=== PATIENT | female | born 1975 | race Hispanic/Latino ===

== ENCOUNTER 2019-11-25 01:08 | Emergency (ER) | payer SELFPAY ==
[~2019-11-25] VITALS: Ht 160 cm; Wt 68.0 kg
[2019-11-25] MEDS ORDERED: KETOROLAC TROMETHAMINE 30 MG/ML VIAL ONE (01:26)
[2019-11-25] MEDS ORDERED: KETOROLAC TROMETHAMINE 60 MG/2 ML VIAL IM ONE (01:30)
[2019-11-25] MEDS ORDERED: ULTRAM50 MG PO (01:37)
[2019-11-25] MEDS ORDERED: NAPROSYN500 MG PO (01:37)
[2019-11-25] MEDS ORDERED: LIDOCAINE 1% W/EPINEPHRINE 20 ML VIAL INJ ONE (01:45)
--- NOTE | 2019-11-25 01:58 | Diagnostic Imaging Report ---
LEFT WRIST 3 IMAGES - LEFT HAND 3 IMAGES HISTORY: Fall COMPARISON: None available. FINDINGS: Rings on the third and fourth digits could not be removed. Bones: Transverse fracture through the distal radius with impaction. No significant displacement of the largest fracture fragments. Intra-articular involvement is suspected. Distal ulna is intact. Carpal bones are intact and normally aligned. The digits are intact. No aggressive osseous lesion. Joints: Osseous alignment is within normal limits and the joint spaces are well-maintained. Soft tissues: The soft tissues appear unremarkable. IMPRESSION: Fracture of the distal radius with impaction and suspicion of intra-articular involvement. Signed by: Dr. Sravan Brady MD on 11/25/2019 1:55 AM
[2019-11-25] MEDS ORDERED: HYDROCODONE/APAP 5MG-325MG TAB ONE (02:23)
[2019-11-25] MEDS ORDERED: HYDROCODONE/APAP 5MG-325MG TAB PO ONE (02:45)
== END 2019-11-25 02:30 | disposition home or self-care (01) ==
LOC: FSED 01:08
DX: S52.122A Displaced fracture of head of left radius, initial encounter for closed fracture (principal); S01.01XA Laceration without foreign body of scalp, initial encounter; W11.XXXA Fall on and from ladder, initial encounter; Y92.008 Other place in unspecified non-institutional (private) residence as the place of occurrence of the external cause
CPT/HCPCS: 12001; 29125; 73110; 73130; 99283; J1885